=== PATIENT | male | born 1985 | race Caucasian/White ===

== ENCOUNTER 2017-05-10 19:03 | Emergency (ER) | payer OTHER ==
[2017-05-10 19:05] VITALS: BP 146/94; PULSE 98; RESP 16; TEMP 99; O2SAT 99
--- NOTE | 2017-05-10 19:56 | PD ---
HPI Chief Complaint: Laceration/Skin Injury Time Seen by Provider: 19:45 Travel History International Travel<30 days: No Contact w/Intl Traveler<30days: No Traveled to known affect area: No History of Present Illness HPI 32-year-old male history of type 2 diabetes presents for evaluation of laceration to the left fifth finger. It was sustained at 5:30 PM today at work. The patient reports that he was putting a clamp on a pipe when something shifted and the wrap around the pipe caused a laceration on his finger. He has pain, aching, worse with palpation. Denies any numbness or tingling or range of motion limitation. Last tetanus vaccination in 2007 or 2008. No other complaints. PFSH Past Medical History Diabetes: Yes (type 2) Diminished Hearing: No Social History Alcohol Use: Yes (STS A FEW BEERS A DAY) Tobacco Use: Yes (09/16 - 09/14 PPD) Substance Use: No Allergies-Medications (Allergen,Severity, Reaction): Coded Allergies: Sulfa (Sulfonamide Antibiotics) (Unverified Allergy, Mild, HIVES, 05/10/17) codeine (Unverified Allergy, Mild, HIVES, 05/10/17) meperidine (Unverified Adverse Reaction, Intermediate, NAUSEA AND VOMITING , 05/10/17) Reported Meds & Prescriptions Reported Meds & Active Scripts Active Keflex (Cephalexin) 500 Mg Capsule 500 Mg PO Q8H 5 Days Review of Systems Musculoskeletal: No: Limited ROM Skin: Positive Other (positive for laceration, pain) Neurologic: No: Paresthesia Physical Exam Narrative GENERAL: Well-developed well-nourished male in no acute distress SKIN: Warm and dry. There is a 0.75 cm laceration to the distal aspect of the left fifth finger. Minimal bleeding. Extremities: Skin as noted above with no obvious bony disturbance ocean. Distal sensation intact. Nail and nailbed intact. Data Data Last Documented VS Vital Signs Date Time Temp Pulse Resp B/P (MAP) Pulse Ox O2 Delivery O2 Flow Rate FiO2 05/10/17 19:05 99.0 98 16 146/94 (111) 99 Room Air Orders Orders Finger ([id number]) (05/10/17 ) Tetanus/Diphtheria Tox Adult (Tetanus/Di (05/10/17 20:00) Lidocaine Pf 1% Inj (Xylocaine-Mpf 1% In (05/10/17 20:00) Cephalexin (Keflex) (05/10/17 21:00) MDM Medical Decision Making Medical Screen Exam Complete: Yes Emergency Medical Condition: Yes Medical Record Reviewed: Yes Differential Diagnosis Cutaneous laceration, tuft fracture, skin avulsion Narrative Course The patient presents with a laceration to the distal left fifth finger. X-ray will be obtained. Tetanus status updated. The laceration will be repaired with sutures, he verbally consents. Given his history of type 2 diabetes, he will be discharged with a short course of Keflex. Procedures Procedure Narrative LACERATION LOCATION: Left fifth finger LENGTH: 0.75 cm NUMBER OF STITCHES/DUANE: 4 REPAIR: The area of the laceration was prepped with Betadine and sterilely draped. The laceration was infiltrated with 1% lidocaine digital block. The wound was copiously irrigated and explored without evidence of foreign body, tendon injury or neurovascular injury. The wound was closed using 5-0 prolene simple interrupted. This was a single layer repair. A sterile dressing was applied. The patient was advised to keep the dressing clean and dry. Patient tolerated the procedure well. Diagnosis Primary Impression: Finger laceration Qualified Codes: S61.217A - Laceration without foreign body of left little finger without damage to nail, initial encounter Additional Instructions: Wash gently with soap and water and apply antibiotic cream and clean bandages daily. Take antibiotics as prescribed. Return in 10-14 days for suture removal. Med/Other Pt SpecificInfo: Prescription(s) given, Wound Care Scripts Cephalexin (Keflex) 500 Mg Capsule 500 MG PO Q8H for Infection for 5 Days, CAP 0 Refills Prov: Debra Rios MD 05/10/17 Disposition: DISCHARGE HOME Condition: Stable Boaz Clark May 10, 2017 19:56
[2017-05-10] MEDS ORDERED: LIDOCAINE HCL 1% PF 30 ML VIAL INFIL ONE (20:00)
[2017-05-10] MEDS ORDERED: TETANUS/DIPHTHERIA TOXOID ADULT 0.5 ML VIAL IM ONE (20:00)
[2017-05-10] MEDS ORDERED: CEPH-460 PO (20:25)
[2017-05-10] MEDS ORDERED: CEPHALEXIN MONOHYDRATE 500 MG CAP PO ONE (21:00)
--- NOTE | 2017-05-10 21:23 | RADRPT ---
EXAM DATE/TIME: 05/10/2017 19:59 [facility] COMPARISON: No previous studies available for comparison. INDICATIONS : Left hand, fifth digit laceration. Patient got finger caught in a pipe at work. MEDICAL HISTORY : None. SURGICAL HISTORY : None. ENCOUNTER: Initial ACUITY: 1 day PAIN SCORE: 10/10 LOCATION: Left hand, fifth digit. FINDINGS: Examination of the fifth digit of the left hand demonstrates no evidence of fracture or dislocation. There is a soft tissue injury at the distal lateral aspect of the fifth digit. No radiopaque foreign bodies are seen. CONCLUSION: Soft tissue injury. Dale Garcia MD on May 10, 2017 at 21:21 Board Certified Radiologist. This report was verified electronically.
== END 2017-05-10 21:45 | disposition home or self-care (01) ==
LOC: NEPK 19:03
DX: S61.217A Laceration without foreign body of left little finger without damage to nail, initial encounter (principal); W45.8XXA Other foreign body or object entering through skin, initial encounter; Y93.89 Activity, other specified; Z23 Encounter for immunization
CPT/HCPCS: 12001; 73140; 90471; 90714

== ENCOUNTER 2017-05-22 10:21 | Emergency (ER) | payer OTHER ==
[~2017-05-22] VITALS: Ht 185.4 cm; Wt 100.0 kg
[~2017-05-22 10:21] MED LIST: CEPH-460 PO
[2017-05-22 10:24] VITALS: BP 156/83; PULSE 86; RESP 20; TEMP 98.7; O2SAT 100
[2017-05-22 10:44] VITALS: BP 154/82; PULSE 78; RESP 17; TEMP 99; O2SAT 100
--- NOTE | 2017-05-22 10:49 | PD ---
HPI Chief Complaint: Wound/Suture/Staple Re-Check Time Seen by Provider: 10:34 Travel History International Travel<30 days: No Contact w/Intl Traveler<30days: No Traveled to known affect area: No History of Present Illness HPI The patient is a 32-year-old male who presents emergency department for suture removal. The patient had sutures placed in the distal aspect of the fifth digit , left hand, 12 days ago. The patient states the wound has healed without difficulty, there is no bleeding or drainage. Tetanus shot is up-to-date. Patient is right-hand dominant. PFSH Past Medical History Diabetes: Yes Diminished Hearing: No Tetanus Vaccination: < 5 Years ?: Not Social History Alcohol Use: Yes (STS A FEW BEERS A DAY) Tobacco Use: Yes (09/16 - 09/14 PPD) Substance Use: No Allergies-Medications (Allergen,Severity, Reaction): Coded Allergies: Sulfa (Sulfonamide Antibiotics) (Unverified Allergy, Mild, HIVES, 05/10/17) codeine (Unverified Allergy, Mild, HIVES, 05/10/17) meperidine (Unverified Adverse Reaction, Intermediate, NAUSEA AND VOMITING , 05/10/17) Reported Meds & Prescriptions Reported Meds & Active Scripts Active Keflex (Cephalexin) 500 Mg Capsule 500 Mg PO Q8H 5 Days Review of Systems Musculoskeletal: No: Limited ROM Skin: Positive Other (as noted in history of present illness) Neurologic: No: Paresthesia, Sensory Disturbance Physical Exam Narrative GENERAL: Awake, alert, very pleasant 32-year-old male who appears his stated age and is in no acute respiratory distress. SKIN: Focused skin assessment warm/dry. HEAD: Atraumatic. Normocephalic. able. MUSCULOSKELETAL: The patient has [address] of the distal aspect of the fifth digit, left hand, distal to the distal interphalangeal joint. There is no dehiscence. No erythema or drainage noted. Full range of motion with flexion at the MCP, PIP, and DIP. Capillary refill less than 2 seconds. NEUROLOGICAL: Awake and alert. No obvious cranial nerve deficits. Motor grossly within normal limits. Normal speech. PSYCHIATRIC: Appropriate mood and affect; insight and judgment normal. Data Data Last Documented VS Vital Signs Date Time Temp Pulse Resp B/P (MAP) Pulse Ox O2 Delivery O2 Flow Rate FiO2 05/22/17 10:45 9/9/17 10:44 99.0 78 17 100 Room Air MDM Medical Decision Making Medical Screen Exam Complete: Yes Emergency Medical Condition: Yes Medical Record Reviewed: Yes Differential Diagnosis Differential diagnosis includes suture removal, wound reevaluation, wound dehiscence, infected wound. Narrative Course The patient's wound appears well, sutures are in place, there is no drainage and patient has full range of motion. Sutures were removed. Patient is medically cleared to go back to work. Procedures Procedure Narrative I removed 4 sutures from the patient's fifth digit of the left hand without any difficulty. There is no visible dehiscence. The patient tolerated the procedure without difficulty. Diagnosis Primary Impression: Visit for suture removal Patient Instructions: General Instructions Additional Instructions: Okay to return back to work. Follow-up with your primary physician. Med/Other Pt SpecificInfo: No Change to Meds Disposition: 01 DISCHARGE HOME Condition: Stable Christian Hawkins MD May 22, 2017 10:49
== END 2017-05-22 11:02 | disposition home or self-care (01) ==
LOC: NEPD 10:21
DX: Z48.02 Encounter for removal of sutures (principal); E11.9 Type 2 diabetes mellitus without complications; F17.200 Nicotine dependence, unspecified, uncomplicated; Z88.2 Allergy status to sulfonamides; Z88.5 Allergy status to narcotic agent; Z88.8 Allergy status to other drugs, medicaments and biological substances
CPT/HCPCS: 99281